=== PATIENT | male | born 1970 | race Caucasian/White ===

== ENCOUNTER → 2016-09-08 | Outpatient (CLI) | payer OTHER ==
--- NOTE | 2016-09-08 14:38 | DX ---
1. CERVICAL SPINE, 2 views HISTORY: Evaluate for arthritis, limited range of motion x1 year, M54.5 COMPARISON: None FINDINGS: There is general straightening of the cervical curvature with mild retrolisthesis at C2-3. There is degenerative disc space narrowing between C3 and T1, greatest between C5 and T1. There are l arge anterior osteophytes present between C4 and T1 suggestive of DISH. There are small posterior ost eophytes present between C3 and C7. Overall mineralization is normal. There are no compression abnorm alities. Incidentally noted is a large external occipital protuberance and either right carotid bifur cation atherosclerotic calcification or a calcified mid cervical lymph node. Impression: Multilevel degenerative disc disease with findings possibly indicating associated DISH. 2. LUMBAR SPINE, 3 views HISTORY: Pain, M54.5, evaluate arthritis COMPARISON: None FINDINGS: There is generalized straightening of the lumbar lordosis with slight retrolisthesis presen t between L2 and L5. There is degenerative disc space narrowing at L2-3 where there is a vacuum pheno huey, marginal sclerosis and anterior and bilateral osteophyte formation. There are also anterior os teophytes present in the low thoracic spine between T10 and L2 and at L4-5. Overall mineralization is normal. Impression: Spondylosis with possible associated DISH.
== END ==
LOC: BMCIMAGING 13:47
PROVIDERS: ATTEND Internal Medicine Rheumatology
DX: M50.30 Other cervical disc degeneration, unspecified cervical region (principal); M43.06 Spondylolysis, lumbar region